=== PATIENT | male | born 1980 | race Caucasian/White ===

== ENCOUNTER 2017-06-04 13:36 | Inpatient (IN) | payer OTHER, BC ==
[~2017-06-04 13:36] MED LIST: PIPERACILLIN/TAZOB 4.5 GM 4.5 GM in DEXTROSE 5%-WATER 100 ML IVPB SCH
--- NOTE | 2017-06-04 13:58 | PDOC ---
History of Present Illness - General Chief Complaint: SIRS, Suspected/Possible Stated Complaint: (PCP SENT) Time Seen by Provider: 06/04/17 13:58 - History of Present Illness Initial Comments: 06/04/17 14:21 36yo M hx b/l inguinal hernia repair presents from Dr. Roth's office for 1 day of fevers, chills and L wrist and R scrotal swelling. 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 Does not recall anything biting him. Today, he saw Dr. Roth who drained a L wrist abscess with purulent drainage, gave him IV benadryl, solumedrol and a gram of rocephin in case this was an allergic reaction. He also endorsed a R testicular bump to Dr. Roth who then sent pt to the ED for further evaluation. Pt reports that he shaves the testicular area and recently shaved a few days ago. Has never had an abscess before. Before yesterday was in his usual state of good health. Denies cp, sob, n/v/d, abd pain, LE edema, dysuria. Has not been sexually active for 8 months, denies penile DC. Denies scrotal pain at rest but the swelling is painful when he pushes on it. Meds: percocet PRN PMD: Dr. Roth Allergies: NKDA Past History - Past Medical History Allergies/Adverse Reactions: Allergies Allergy/AdvReac Type Severity Reaction Status Date / Time No Known Allergies Allergy Verified 06/04/17 13:45 Home Medications: Ambulatory Orders NK [No Known Home Medication] 06/04/17 Anemia: No Asthma: No Cancer: No Cardiac Disorders: No CVA: No COPD: No CHF: No Dementia: No Diabetes: No GI Disorders: No Disorders: No HTN: No Hypercholesterolemia: No Liver Disease: No Seizures: No Thyroid Disease: No - Surgical History Abdominal Surgery: Yes (Repair of Right Inguinal Hernia x2) Appendectomy: No Cardiac Surgery: No Cholecystectomy: No Lung Surgery: No Neurologic Surgery: No Orthopedic Surgery: No - Psycho/Social/Smoking Cessation Hx Anxiety: No Suicidal Ideation: No Smoking Status: No Smoking History: Never smoked Number of Cigarettes Smoked Daily: 0 Hx Alcohol Use: No Drug/Substance Use Hx: No Substance Use Type: None Hx Substance Use Treatment: No Review of Systems - Review of Systems Comments:: 06/04/17 14:36 GENERAL/CONSTITUTIONAL: +fever or chills. No weakness. HEAD, EYES, EARS, NOSE AND THROAT: No change in vision. No ear pain or discharge. No sore throat. CARDIOVASCULAR: No chest pain or shortness of breath. RESPIRATORY: No cough, wheezing, or hemoptysis. GASTROINTESTINAL: No nausea, vomiting, diarrhea or constipation. GENITOURINARY: No dysuria, frequency, or change in urination. +scrotal swelling MUSCULOSKELETAL: No joint or muscle swelling. No neck or back pain. +L wrist pain and swelling SKIN: +abscess L wrist NEUROLOGIC: No headache, vertigo, loss of consciousness, or change in strength/ sensation. ENDOCRINE: No increased thirst. No abnormal weight change. HEMATOLOGIC/LYMPHATIC: No anemia, easy bleeding, or history of blood clots. ALLERGIC/IMMUNOLOGIC: No hives or skin allergy. *Physical Exam - Vital Signs Last Vital Signs Temp Pulse Resp BP Pulse Ox 102.8 F H 104 H 20 139/75 98 06/04/17 13:41 06/04/17 13:41 06/04/17 13:41 06/04/17 13:41 06/04/17 13:41 - Physical Exam Comments: 06/04/17 14:37 GENERAL: Awake, alert, and fully oriented, in no acute distress. Febrile, soaked through his t-shirt HEAD: No signs of trauma EYES: PERRLA, EOMI, sclera anicteric, conjunctiva clear ENT: Auricles normal inspection, hearing grossly normal, nares patent, oropharynx clear without exudates. Moist mucosa NECK: Normal ROM, supple, no lymphadenopathy, JVD, or masses LUNGS: Breath sounds equal, clear to auscultation bilaterally. No wheezes, and no crackles HEART: Regular rate and rhythm, normal S1 and S2, no murmurs, rubs or gallops ABDOMEN: Soft, nontender, normoactive bowel sounds. No guarding, no rebound. No masses : R testicle with swelling, erythema, warmth, induration and fluctuant area of approximately 4x6cm EXTREMITIES: Normal range of motion. No clubbing or cyanosis. No cords. L distal wrist with non draining wound with mild surrounding erythema NEUROLOGICAL: Normal speech, cranial nerves intact, negative pronator drift, 5/ 5 strength in all 4 extremities, normal sensation to light touch in all 4 extremities, normal cerebellar exam, normal gait, normal reflexes and tone SKIN: Warm, Dry, normal turgor, no rashes or lesions noted. ED Treatment Course - LABORATORY CBC & Chemistry Diagram: 06/04/17 14:00 06/04/17 14:00 Medical Decision Making - Critical Care Time Total Critical Care Time (minutes): 35 Critical Care Statement: The care of this patient involved high complexity decision making to prevent further life threatening deterioration of the patient 's condition and/or to evaluate & treat vital organ system(s) failure or risk of failure. - Medical Decision Making 06/04/17 14:39 36yo M w/o significant PMH p/w fever, chills, and likely L wrist and R scrotal abscess. Possible 2/2 shaving. Pt currently meets SIRS criteria with recurrent fever here in the ED. Plan: -labs -herrera cx -lactate -scrotal US -UA -abx -IVF -admit 06/04/17 16:52 US with acute vs chronic orchitis as well as moderate hydrocele WBC [address] Roth re case, will admit WIll also c/s Dr. Oswald (ID) and Dr. Sotelo (uro) Awaiting call back 06/04/17 17:[address] Weir who advised we cover with Vanc/Zosyn as 2 abscesses are concerning for bacteremia stephen in setting of recurrent fevers and chills. Vanc and Zosyn ordered. Case was also discussed with Dr. Sotelo who will see the patient *DC/Admit/Observation/Transfer Diagnosis at time of Disposition: Systemic inflammatory response syndrome (SIRS) - Discharge Dispostion Condition at time of disposition: Fair Admit: Yes - Referrals Referrals: Abdulaziz Roth MD [Primary Care Provider] - - Attestations Physician Attestion: 06/04/17 16:53 I, Dr. Tran Casas MD, attest that this document has been prepared under my direction and personally reviewed by me in its entirety. I further attest, that it accurately reflects all work, treatment, procedures and medical decision -making performed by me.
[2017-06-04] MEDS ORDERED: SODIUM CHLORIDE 0.9% 1000 ML INFUS.BAG IV ONE (13:59)
[2017-06-04] MEDS ORDERED: ACETAMINOPHEN 500 MG TABLET (FP) PO ONE (14:17)
[2017-06-04] MEDS ORDERED: ACETAMINOPHEN 1000 MG/100 ML VIAL (NON FORMULARY) IVPB ONE (14:18)
[2017-06-04] MEDS ORDERED: ACETAMINOPHEN INJECTION 100 ML IVPB ONE (14:31)
[2017-06-04 14:35] LABS: VENOUS BLOOD GAS HCO3 24.5 meq/L (19-25); VENOUS PH 7.46 (7.32-7.42)
[2017-06-04 14:59] LABS: URINE APPEARANCE CLEAR; URINE BILIRUBIN NEGATIVE (NEGATIVE); URINE BLOOD 1+ (NEGATIVE); URINE COLOR STRAW; URINE GLUCOSE (UA) NEGATIVE (NEGATIVE); URINE KETONE NEGATIVE (NEGATIVE); URINE LEUK ESTERASE NEGATIVE (NEGATIVE); URINE NITRITE NEGATIVE (NEGATIVE); URINE PROTEIN NEGATIVE (NEGATIVE); URINE UROBILINOGEN NEGATIVE mg/dL (0.2-1.0)
[2017-06-04 15:12] LABS: ALBUMIN 3.9 g/dl (3.4-5.0); ANION GAP 6 (8-16); CALCIUM 8.6 mg/dL (8.5-10.1); CO2 25 mmol/L (21-32); GLUCOSE,RANDOM 91 mg/dL (74-106)
[2017-06-04 15:14] LABS: BASOPHIL 0.1 % (0-2.0); EOSINOPHIL 0.1 % (0-4.5); MCH 29.7 pg (25.7-33.7); MCHC 34.1 g/dl (32.0-35.9); MEAN CELL VOLUME 87.1 fl (80-96); NEUTROPHILS 91.1 % (42.8-82.8); PLATELET COUNT 229 K/MM3 (134-434); RDW 14.5 % (11.9-15.9); SGPT/ALT 28 U/L (12-78); URINE WBC <1 /hpf (3-5); WHITE BLOOD COUNT 16.9 K/mm3 (4.0-10.0)
[2017-06-04 15:19] LABS: ALK PHOS 82 U/L (45-117); BILIRUBIN,TOTAL 1.1 mg/dL (0.2-1.0); CPK 490 IU/L (39-308); CREATININE 1.1 mg/dL (0.7-1.3); SGOT/AST 33 U/L (15-37); TOT PROT 7.6 g/dl (6.4-8.2); TROPONIN I < 0.02 ng/ml (0.00-0.05)
[2017-06-04 15:36] LABS: INR 1.21 (0.82-1.09); PROTHROMBIN TIME (PATIENT) 13.4 SEC (9.98-11.88)
[2017-06-04 15:39] LABS: ACTIVATED PTT 30.1 SECONDS (26.9-34.4)
[2017-06-04] MEDS ORDERED: VANCOMYCIN 1,750 MG in DEXTROSE 5%-WATER - 250 ML IVPB ONE (17:01)
[2017-06-04] MEDS ORDERED: PIPERACILLIN/TAZOB 4.5 GM 4.5 GM in DEXTROSE 5%-WATER - 100 ML IVPB ONE (17:03)
[2017-06-04] MEDS ORDERED: VANCOMYCIN 1 GRAM (PRE-DOCKED) 250 ML IVPB ONE (17:40)
[2017-06-04] MEDS ORDERED: PIPERACILLIN/TAZOB 4.5 GM 100 ML IVPB ONE (17:40)
--- NOTE | 2017-06-04 17:49 | PN ---
Progress Note (short form) - Note Progress Note: ID consult dictated imp/reccd 36 year old man developed abscess on left forearm yesterday afternoon, last night he started having fever and chills saw his PMD today who drained the abscess and sent him to ED found to have a painful nodular mass in his right testicle as well fever tachycardia-SIRS abscess left forearm orchitis- possible abscess or mass right testicle concern for bacteremia no prior history of abscess no ivdu suggest vanco zosyn adjusted for weight not sexually active for months no dysuria declines HIV testing at this time- prefers as outpt with his PMD Problem List - Problems (1) Systemic inflammatory response syndrome (SIRS) Code(s): R65.10 - SIRS OF NON-INFECTIOUS ORIGIN W/O ACUTE ORGAN DYSFUNCTION (2) Abscess Code(s): L02.91 - CUTANEOUS ABSCESS, UNSPECIFIED (3) Orchitis Code(s): N45.2 - ORCHITIS
[2017-06-04] MEDS ORDERED: diphenhydrAMINE HCL 25 MG CAPSULE (FP) PO PRN (17:58)
[2017-06-04] MEDS ORDERED: ACETAMINOPHEN 325 MG TABLET (FP) PO PRN (17:58)
[2017-06-04] MEDS ORDERED: PIPERACILLIN/TAZOB 4.5 GM/100 ML PRE-DOCKED IVPB SCH (18:00)
[2017-06-04] MEDS ORDERED: ONDANSETRON *ODT* 4 MG TABLET SL PRN (18:00)
[2017-06-04] MEDS ORDERED: VANCOMYCIN 1,750 MG in DEXTROSE 5%-WATER - 500 ML IVPB ONE (18:30)
[2017-06-04] MEDS ORDERED: BACITRACIN 0.9 GM PACKET ONE (19:05)
[2017-06-04] MEDS ORDERED: PANTOPRAZOLE 40 MG TABLET (FP) ONE (19:05)
[2017-06-04] MEDS: BACITRACIN 15 GM TUBE TOPICAL OINTMENT TP SCH (19:06)
[2017-06-04] MEDS: PANTOPRAZOLE 40 MG TABLET (FP) PO SCH (19:06)
[2017-06-04] MEDS ORDERED: ACETAMINOPHEN 325 MG TABLET (FP) ONE (20:23)
[2017-06-04 20:54] LABS: ALBUMIN 3.6 g/dl (3.4-5.0); ANION GAP 2 (8-16); CALCIUM 8.7 mg/dL (8.5-10.1); CO2 26 mmol/L (21-32); CREATININE 1.1 mg/dL (0.7-1.3); GLUCOSE,RANDOM 157 mg/dL (74-106); SGOT/AST 27 U/L (15-37); SGPT/ALT 29 U/L (12-78); TOT PROT 7.4 g/dl (6.4-8.2)
[2017-06-04 20:55] LABS: ALK PHOS 77 U/L (45-117)
[2017-06-04] MEDS: SODIUM CHLORIDE 1,000 ML IV SCH (21:47)
[2017-06-04 22:12] VITALS: BMI 40.6
[2017-06-05] MEDS ORDERED: PIPERACILLIN/TAZOBACTAM 4.5 GM VIAL IVPB ONE ×3 (02:21→17:06)
[2017-06-05] MEDS ORDERED: DEXTROSE 5%-WATER 100 ML IVPB ONE ×3 (02:21→17:06)
[2017-06-05] MEDS: PIPERACILLIN/TAZOB 4.5 GM 4.5 GM in DEXTROSE 5%-WATER 100 ML IVPB SCH ×3 (02:25→17:09)
[2017-06-05] MEDS: VANCOMYCIN 1,500 MG in DEXTROSE 5%-WATER - 500 ML IVPB SCH ×2 (05:57→18:29)
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
[2017-06-05 07:55] LABS: MCH 28.9 pg (25.7-33.7); MCHC 32.8 g/dl (32.0-35.9); MEAN CELL VOLUME 88.1 fl (80-96); MEAN PLT VOLUME 8.6 fl (7.5-11.1); PLATELET COUNT 201 K/MM3 (134-434); RDW 14.8 % (11.9-15.9); WHITE BLOOD COUNT 17.6 K/mm3 (4.0-10.0)
--- NOTE | 2017-06-05 08:24 | CON.GU ---
Consult Consult Specialty:: urology Referred by:: Gonzalez Reason for Consultation:: right epididymo-orchitis - History of Present Illness Chief Complaint: right testicular pain with fever History of Present Illness: Patient is a 36 year old male with acute onset of right testicular pain with fever >102. Patient denies trauma, gross hematuria, flank pain, dysuria, or change in urinary pattern. Patient had an upper extremity abscess drained earlier yesterday. Patient has a family history of prostate cancer. - History Source History Provided By: Patient Limitations to Obtaining History: No Limitations - Alcohol/Substance Use Hx Alcohol Use: No - Smoking History Smoking history: Never smoked Aproximately how many cigarettes per day: 0 Home Medications - Allergies Allergies/Adverse Reactions: Allergies Allergy/AdvReac Type Severity Reaction Status Date / Time No Known Allergies Allergy Verified 06/04/17 13:45 - Home Medications Home Medications: Ambulatory Orders NK [No Known Home Medication] 06/04/17 Physical Exam- Vital Signs: Vital Signs Temperature 97.7 F 06/05/17 06:00 Pulse Rate 77 06/05/17 06:00 Respiratory Rate 20 06/05/17 06:00 Blood Pressure 114/73 06/05/17 06:00 O2 Sat by Pulse Oximetry (%) 98 06/05/17 04:00 Constitutional: Yes: Well Nourished, No Distress, Calm Eyes: Yes: WNL, Conjunctiva Clear, EOM Intact HENT: Yes: WNL, Atraumatic, Normocephalic Neck: Yes: WNL, Supple, Trachea Midline Cardiovascular: Yes: WNL Respiratory: Yes: WNL Gastrointestinal: Yes: WNL, Normal Bowel Sounds, Soft Renal/: Yes: WNL Kidneys: Yes: WNL Pelvis: Yes: WNL Scrotum: Yes: Other (right epididymal induration with significant tenderness; mild testicular tenderness; no fluid collection noted) Penis: Yes: WNL Prostate Exam: Yes: Asymmetrical Musculoskeletal: Yes: WNL Labs: CBC, BMP 06/05/17 06:00 06/04/17 20:20 Imaging - Results Ultrasound: Report Reviewed Assessment/Plan impression right epididymo-orchitis plan continue antibiotics as per ID will follow-up as outpatient
[2017-06-05] MEDS ORDERED: FLU VACCINE QUAD 60 MCG/0.5 ML (MDV 17-18) IM ONE (08:30)
[2017-06-05] MEDS ORDERED: oxyCODONE HCL 5 MG TABLET PO ONE (09:30)
[2017-06-05] MEDS: PANTOPRAZOLE 40 MG TABLET (FP) PO SCH (09:58)
--- NOTE | 2017-06-05 10:33 | HP ---
Admitting History and Physical - Primary Care Physician PCP: Abdulaziz Roth - Admission Chief Complaint: SENT FROM OFFICE WITH ACUTE ANAPHYLAXIS AND FEVER FROM WASP BITE/RIGHT TESTICULAR MASS History of Present Illness: 36yo M hx b/l inguinal hernia repair presents from MY office for 1 day of fevers , chills and L wrist and R scrotal swelling. 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 Does not recall anything biting him. I SAW HIM YESTERDAY AND drained a L wrist abscess with purulent drainage, gave him IV benadryl, solumedrol and a gram of rocephin in case this was an allergic reaction. He also endorsed a R testicular bump to ME who then sent pt to the ED for further evaluation. Pt reports that he shaves the testicular area and recently shaved a few days ago. Has never had an abscess before. Before yesterday was in his usual state of good health. History Source: Patient - Smoking History Smoking history: Never smoked Aproximately how many cigarettes per day: 0 - Alcohol/Substance Use Hx Alcohol Use: No Home Medications - Allergies Allergies/Adverse Reactions: Allergies Allergy/AdvReac Type Severity Reaction Status Date / Time No Known Allergies Allergy Verified 06/04/17 13:45 - Home Medications Home Medications: Ambulatory Orders NK [No Known Home Medication] 06/04/17 Review of Systems - Review of Systems Constitutional: reports: Fever, Lethargy, Weakness Eyes: reports: No Symptoms HENT: reports: No Symptoms Neck: reports: No Symptoms Cardiovascular: reports: No Symptoms Respiratory: reports: No Symptoms Gastrointestinal: reports: No Symptoms Genitourinary: reports: No Symptoms Integumentary: reports: Rash Neurological: reports: No Symptoms Endocrine: reports: No Symptoms Hematology/Lymphatic: reports: No Symptoms Psychiatric: reports: No Symptoms Physical Examination Vital Signs: Vital Signs Temperature 97.7 F 06/05/17 06:00 Pulse Rate 77 06/05/17 06:00 Respiratory Rate 20 06/05/17 06:00 Blood Pressure 114/73 06/05/17 06:00 O2 Sat by Pulse Oximetry (%) 98 06/05/17 04:00 Constitutional: Yes: Moderate Distress Eyes: Yes: WNL HENT: Yes: Pharyngeal Erythema Neck: Yes: WNL Cardiovascular: Yes: WNL Respiratory: Yes: WNL Gastrointestinal: Yes: WNL Renal/: Yes: Scrotal Edema, Other Musculoskeletal: Yes: WNL Extremities: Yes: WNL Edema: No Peripheral Pulses WNL: Yes Integumentary: Yes: Pressure Ulcer, Rash, Skin Tear (LEFT FOREARM) Wound/Incision: Yes: Dressing Dry and Intact Neurological: Yes: WNL ...Motor Strength: WNL Psychiatric: Yes: WNL Labs: CBC, BMP 06/05/17 06:00 06/04/17 20:20 Imaging - Results Ultrasound: Report Reviewed Problem List - Problems (1) Abscess Code(s): L02.91 - CUTANEOUS ABSCESS, UNSPECIFIED (2) Orchitis Code(s): N45.2 - ORCHITIS (3) Systemic inflammatory response syndrome (SIRS) Code(s): R65.10 - SIRS OF NON-INFECTIOUS ORIGIN W/O ACUTE ORGAN DYSFUNCTION (4) Anaphylaxis Code(s): T78.2XXA - ANAPHYLACTIC SHOCK, UNSPECIFIED, INITIAL ENCOUNTER Qualifiers: Encounter type: initial encounter Qualified Code(s): T78.2XXA - Anaphylactic shock, unspecified, initial encounter (5) Fever Code(s): R50.9 - FEVER, UNSPECIFIED Qualifiers: Fever type: due to other condition Qualified Code(s): R50.81 - Fever presenting with conditions classified elsewhere (6) Wasp sting-induced anaphylaxis Code(s): T63.461A - TOXIC EFFECT OF VENOM OF WASPS, ACCIDENTAL, INIT Assessment/Plan WASP BITE WITH ANAPHYLAXIS PHARYNGEAL EDEMA IV STEROIDS/ABX / BENADRYL GIVEN ID CONSULT TESTICULAR MASS/ABSCESS EVAL CHECK CULTURES
--- NOTE | 2017-06-05 11:30 | PN ---
Progress Note (short form) - Note Progress Note: ID Vancomycin and Zosyn Feels well NO complaints Selected Entries 06/05/17 10:52 Temperature 98 F Pulse Rate 91 H Respiratory 19 Rate Blood Pressure 143/70 LUng Clear Cor S1 S2 rr NO MURMUR abd Soft nontender testicular epidydimal swelling Ext Abscess draining left forearm Microbiology Laboratory Tests 06/04/17 06/04/17 06/05/17 14:00 20:20 06:00 WBC 17.6 H Hgb 13.2 Hct 40.2 Plt Count 201 Creatinine 1.1 Total Bilirubin 1.0 Alkaline Phosphatase 77 Urine RBC None Urine WBC <1 Microbiology Assessment Right sided orchitis/ LEft forearm abscess drained PMD Relationship ? 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
[2017-06-05] MEDS: methylPREDNISolone 4 MG TABLET PO SCH (12:06)
--- NOTE | 2017-06-05 13:15 | EKG ---
Test Reason : Blood Pressure : / mmHG Vent. Rate : 093 BPM Atrial Rate : 093 BPM P-R Int : 160 ms QRS Dur : 090 ms QT Int : 326 ms P-R-T Axes : 041 052 017 degrees QTc Int : 405 ms NORMAL SINUS RHYTHM POSSIBLE LEFT ATRIAL ENLARGEMENT BORDERLINE ECG WHEN COMPARED WITH ECG OF 13-FEB-2011 10:02, VENT. RATE HAS INCREASED BY 44 BPM Confirmed by TUNDE ORDOÑEZ MD ([id number]) on 06/05/2017 1:15:24 PM Referred By: Confirmed By:TUNDE ORDOÑEZ MD
--- NOTE | 2017-06-05 13:18 | PN ---
Progress Note (short form) - Note Progress Note: full consult to follow, pt seen and no need for further I&D. warm compresses ordered.
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
[2017-06-05] MEDS: SODIUM CHLORIDE 1,000 ML IV SCH (17:08)
[2017-06-05] MEDS: oxyCODONE HCL 5 MG TABLET PO PRN (17:44)
[2017-06-05] MEDS: BACITRACIN 15 GM TUBE TOPICAL OINTMENT TP SCH (17:47)
[2017-06-06] MEDS ORDERED: DEXTROSE 5%-WATER 100 ML IVPB ONE ×2 (01:03→16:40)
[2017-06-06] MEDS ORDERED: PIPERACILLIN/TAZOBACTAM 4.5 GM VIAL IVPB ONE ×3 (01:03→16:39)
[2017-06-06] MEDS: PIPERACILLIN/TAZOB 4.5 GM 4.5 GM in DEXTROSE 5%-WATER 100 ML IVPB SCH ×3 (01:26→18:26)
[2017-06-06] MEDS: VANCOMYCIN 1,500 MG in DEXTROSE 5%-WATER - 500 ML IVPB SCH ×2 (05:36→19:34)
[2017-06-06] MEDS: oxyCODONE HCL 5 MG TABLET PO PRN ×2 (07:59→16:55)
[2017-06-06] MEDS: PANTOPRAZOLE 40 MG TABLET (FP) PO SCH (09:19)
[2017-06-06 10:33] LABS: MCHC 32.6 g/dl (32.0-35.9); MEAN CELL VOLUME 88.9 fl (80-96); MEAN PLT VOLUME 8.4 fl (7.5-11.1); PLATELET COUNT 220 K/MM3 (134-434); RDW 15.1 % (11.9-15.9); WHITE BLOOD COUNT 12.7 K/mm3 (4.0-10.0)
--- NOTE | 2017-06-06 11:38 | PN ---
Progress Note, Physician Chief Complaint: AWAKE ALERT C/O RIGHT TESTICLE INCREASING IN SIZE - Current Medication List Current Medications: Active Medications Acetaminophen (Tylenol -) 650 mg PO Q6H PRN PRN Reason: FEVER OR PAIN Last Admin: 06/04/17 22:58 Dose: 650 mg Bacitracin (Bacitracin -) 1 applic TP DAILY [facility] Last Admin: 06/05/17 17:47 Dose: Not Given Diphenhydramine HCl (Benadryl -) 25 mg PO Q6H PRN PRN Reason: FOR ITCHING Sodium Chloride (Normal Saline -) 1,000 mls @ 83 mls/hr IV ASDIR [facility] Last Admin: 06/05/17 17:08 Dose: 83 mls/hr Piperacillin Sod/Tazobactam (Sod 4.5 gm/ Dextrose) 100 mls @ 200 mls/hr IVPB Q8H-IV [facility] Last Admin: 06/06/17 09:19 Dose: 200 mls/hr Vancomycin HCl 1,500 mg/ (Dextrose) 500 mls @ 250 mls/hr IVPB Q12H [facility] Last Admin: 06/06/17 05:36 Dose: 250 mls/hr Methylprednisolone (Medrol -) 4 mg PO DAILY [facility] Last Admin: 06/05/17 12:06 Dose: 4 mg Ondansetron HCl (Zofran Odt -) 4 mg SL Q6H PRN PRN Reason: NAUSEA AND/OR VOMITING Last Admin: 06/05/17 02:24 Dose: 4 mg Oxycodone HCl (Roxicodone -) 10 mg PO Q6H PRN PRN Reason: PAIN Last Admin: 06/06/17 07:59 Dose: 10 mg Pantoprazole Sodium (Protonix -) 40 mg PO DAILY [facility] Last Admin: 06/06/17 09:19 Dose: 40 mg - Objective Vital Signs: Vital Signs Temperature 97.8 F 06/06/17 06:00 Pulse Rate 79 06/06/17 06:00 Respiratory Rate 18 06/06/17 06:00 Blood Pressure 132/68 06/06/17 06:00 O2 Sat by Pulse Oximetry (%) 98 06/05/17 19:56 Constitutional: Yes: Mild Distress Eyes: Yes: WNL HENT: Yes: WNL Neck: Yes: WNL Cardiovascular: Yes: WNL Respiratory: Yes: WNL Gastrointestinal: Yes: WNL Genitourinary: Yes: Scrotal Edema, Other (ORCHITIS) Musculoskeletal: Yes: WNL Extremities: Yes: WNL Edema: No Peripheral Pulses WNL: Yes Integumentary: Yes: Rash, Skin Tear Wound/Incision: Yes: Dressing Dry and Intact (LEFT FOREARM) Neurological: Yes: WNL ...Motor Strength: WNL Psychiatric: Yes: WNL Labs: CBC, BMP 06/06/17 10:04 06/04/17 20:20 INR, PTT INR 1.21 (0.82-1.09) H 06/04/17 14:00 Problem List - Problems (1) Abscess Code(s): L02.91 - CUTANEOUS ABSCESS, UNSPECIFIED (2) Orchitis Code(s): N45.2 - ORCHITIS (3) Systemic inflammatory response syndrome (SIRS) Code(s): R65.10 - SIRS OF NON-INFECTIOUS ORIGIN W/O ACUTE ORGAN DYSFUNCTION (4) Anaphylaxis Code(s): T78.2XXA - ANAPHYLACTIC SHOCK, UNSPECIFIED, INITIAL ENCOUNTER Qualifiers: Encounter type: initial encounter Qualified Code(s): T78.2XXA - Anaphylactic shock, unspecified, initial encounter (5) Fever Code(s): R50.9 - FEVER, UNSPECIFIED Qualifiers: Fever type: due to other condition Qualified Code(s): R50.81 - Fever presenting with conditions classified elsewhere (6) Wasp sting-induced anaphylaxis Code(s): T63.461A - TOXIC EFFECT OF VENOM OF WASPS, ACCIDENTAL, INIT Assessment/Plan IV ABX PER ID NO GROWTH ON CULTURES LABS REVIEWED ID F/U APPRECIATED CALL BACK FOR TESTICLE EDEMA/MASS
[2017-06-06] MEDS ORDERED: PT OWN MED DRAWER 7, Y5N ONE ×2 (12:23→16:53)
--- NOTE | 2017-06-06 14:23 | PN ---
Progress Note (short form) - Note Progress Note: continues pain left forearm, some purulent drainage noted still with scrotal pain Vital Signs Period Temp Pulse Resp BP Sys/Forte Pulse Ox Last 24 Hr 97.8 F-99.5 F 77-83 18-20 102-132/51-68 98-98 cor-rrr lungs clear abd soft,nt ext +induration left forearm with purulent drainage +scrotal pain and induration with erythema CBC, BMP 06/06/17 10:04 06/04/17 20:20 Microbiology 06/04/17 14:00 Urine - Urine Clean Catch Urine Culture - Final NO GROWTH OBTAINED 06/04/17 14:00 Blood - Peripheral Venous Blood Culture - Preliminary NO GROWTH OBTAINED AFTER 24 HOURS, INCUBATION TO CONTINUE FOR 4 DAYS. 06/04/17 14:00 Blood - Peripheral Venous Blood Culture - Preliminary NO GROWTH OBTAINED AFTER 24 HOURS, INCUBATION TO CONTINUE FOR 4 DAYS. a/p fever tachycardia-SIRS abscess left forearm orchitis- possible abscess or mass right testicle repeat wound culture, now with purulent drainage from his arm continue vanco/zosyn vancomycin trough ordered not sexually active for months no dysuria will order chlamydia/GC DELTA add po doxycycline declines HIV testing at this time- prefers as outpt with his PMD Problem List - Problems (1) Systemic inflammatory response syndrome (SIRS) Code(s): R65.10 - SIRS OF NON-INFECTIOUS ORIGIN W/O ACUTE ORGAN DYSFUNCTION (2) Abscess Code(s): L02.91 - CUTANEOUS ABSCESS, UNSPECIFIED (3) Orchitis Code(s): N45.2 - ORCHITIS
[2017-06-06] MEDS ORDERED: LIDOCAINE HCL 1%, 10 MG/ML (20ML VIAL) ONE (16:50)
[2017-06-06] MEDS: methylPREDNISolone 4 MG TABLET PO SCH (16:55)
[2017-06-06] MEDS: BACITRACIN 15 GM TUBE TOPICAL OINTMENT TP SCH (17:17)
--- NOTE | 2017-06-06 17:57 | PN ---
Progress Note (short form) - Note Progress Note: Vascular Surgery Left forearm I&D performed. Area opened above prior incision due to pain and erythema. No pus found Entire area explored with scissors -- no loculations found. Bacitracin to area. Jerry Camarena DO
--- NOTE | 2017-06-06 18:16 | CONSULT ---
Consult - text type - Consultation Consultation Note: cc: left epididydo-orchitis hpi: called to evaluate patient for possible abscess formation. patient is afebrile and otherwise doing ok afeb no scrotal collection tender and indurated epididymys and testicle imp epididymo-orchitis plan continue antibiotics as per id
[2017-06-06] MEDS: DOXYCYCLINE HYCLATE 100 MG CAPSULE PO SCH (18:26)
[2017-06-06] MEDS ORDERED: HYDROmorphone HCL CARPU-JECT 1 MG/1 ML DISP.SYRIN IVPB ONE (18:45)
[2017-06-06] MEDS: SODIUM CHLORIDE 1,000 ML IV SCH (20:20)
[2017-06-07] MEDS ORDERED: DEXTROSE 5%-WATER 100 ML IVPB ONE ×4 (01:17→23:56)
[2017-06-07] MEDS ORDERED: PIPERACILLIN/TAZOBACTAM 4.5 GM VIAL IVPB ONE ×4 (01:17→23:56)
[2017-06-07] MEDS: PIPERACILLIN/TAZOB 4.5 GM 4.5 GM in DEXTROSE 5%-WATER 100 ML IVPB SCH ×3 (01:34→17:43)
[2017-06-07] MEDS: HYDROmorphone HCL CARPU-JECT 1 MG/1 ML DISP.SYRIN IVPB PRN ×3 (03:48→18:31)
[2017-06-07] MEDS ORDERED: PT OWN MED DRAWER 7, Y5N ONE ×4 (05:33→18:57)
[2017-06-07] MEDS: VANCOMYCIN 1,500 MG in DEXTROSE 5%-WATER - 500 ML IVPB SCH ×2 (05:51→18:32)
[2017-06-07] MEDS: DOXYCYCLINE HYCLATE 100 MG CAPSULE PO SCH ×2 (09:53→17:42)
[2017-06-07] MEDS: PANTOPRAZOLE 40 MG TABLET (FP) PO SCH (09:53)
[2017-06-07] MEDS: BACITRACIN 15 GM TUBE TOPICAL OINTMENT TP SCH (10:22)
[2017-06-07] MEDS: methylPREDNISolone 4 MG TABLET PO SCH (10:25)
--- NOTE | 2017-06-07 10:32 | PN ---
Progress Note, Physician Chief Complaint: AWAKE ALERT LEFT ARM DRESSING DRAINING - Current Medication List Current Medications: Active Medications Acetaminophen (Tylenol -) 650 mg PO Q6H PRN PRN Reason: FEVER OR PAIN Last Admin: 06/04/17 22:58 Dose: 650 mg Bacitracin (Bacitracin -) 1 applic TP DAILY [facility] Last Admin: 06/07/17 10:22 Dose: 1 applic Diphenhydramine HCl (Benadryl -) 25 mg PO Q6H PRN PRN Reason: FOR ITCHING Doxycycline Hyclate (Vibramycin -) 100 mg PO BID@1000,1800 [facility] Last Admin: 06/07/17 09:53 Dose: 100 mg Hydromorphone HCl (Dilaudid Injection -) 1 mg IVPB Q6H PRN PRN Reason: PAIN Last Admin: 06/07/17 03:48 Dose: 1 mg Piperacillin Sod/Tazobactam (Sod 4.5 gm/ Dextrose) 100 mls @ 200 mls/hr IVPB Q8H-IV [facility] Last Admin: 06/07/17 09:53 Dose: 200 mls/hr Vancomycin HCl 1,500 mg/ (Dextrose) 500 mls @ 250 mls/hr IVPB Q12H [facility] Last Admin: 06/07/17 05:51 Dose: 250 mls/hr Methylprednisolone (Medrol -) 4 mg PO DAILY [facility] Last Admin: 06/07/17 10:25 Dose: 4 mg Ondansetron HCl (Zofran Odt -) 4 mg SL Q6H PRN PRN Reason: NAUSEA AND/OR VOMITING Last Admin: 06/05/17 02:24 Dose: 4 mg Oxycodone HCl (Roxicodone -) 10 mg PO Q6H PRN PRN Reason: PAIN Last Admin: 06/06/17 16:55 Dose: 10 mg Pantoprazole Sodium (Protonix -) 40 mg PO DAILY [facility] Last Admin: 06/07/17 09:53 Dose: 40 mg - Objective Vital Signs: Vital Signs Temperature 98.1 F 06/07/17 06:55 Pulse Rate 70 06/07/17 06:55 Respiratory Rate 18 06/07/17 06:55 Blood Pressure 110/63 06/07/17 06:55 O2 Sat by Pulse Oximetry (%) 98 06/06/17 21:00 Constitutional: Yes: Mild Distress Eyes: Yes: WNL HENT: Yes: WNL Neck: Yes: WNL Cardiovascular: Yes: WNL Respiratory: Yes: WNL Gastrointestinal: Yes: WNL Genitourinary: Yes: Scrotal Edema, Other Musculoskeletal: Yes: WNL Extremities: Yes: Other Edema: Yes Edema: LUE: 1+ Peripheral Pulses WNL: Yes Integumentary: Yes: Other Wound/Incision: Yes: Dressing Dry and Intact, Draining Neurological: Yes: WNL ...Motor Strength: WNL Psychiatric: Yes: WNL Labs: CBC, BMP 06/06/17 10:04 06/04/17 20:20 INR, PTT INR 1.21 (0.82-1.09) H 06/04/17 14:00 Problem List - Problems (1) Abscess Code(s): L02.91 - CUTANEOUS ABSCESS, UNSPECIFIED (2) Orchitis Code(s): N45.2 - ORCHITIS (3) Systemic inflammatory response syndrome (SIRS) Code(s): R65.10 - SIRS OF NON-INFECTIOUS ORIGIN W/O ACUTE ORGAN DYSFUNCTION (4) Anaphylaxis Code(s): T78.2XXA - ANAPHYLACTIC SHOCK, UNSPECIFIED, INITIAL ENCOUNTER Qualifiers: Encounter type: initial encounter Qualified Code(s): T78.2XXA - Anaphylactic shock, unspecified, initial encounter (5) Fever Code(s): R50.9 - FEVER, UNSPECIFIED Qualifiers: Fever type: due to other condition Qualified Code(s): R50.81 - Fever presenting with conditions classified elsewhere (6) Wasp sting-induced anaphylaxis Code(s): T63.461A - TOXIC EFFECT OF VENOM OF WASPS, ACCIDENTAL, INIT Assessment/Plan IV ABX CONTINUED CT LUE R/O HIDDEN ABSCESS NO FEVERS NO CULTURES BACK YET ORHITIS CONTINUES , FOLLOW UP CT PELVIS
--- NOTE | 2017-06-07 14:32 | PN ---
Progress Note (short form) - Note Progress Note: feels much better less arm and scrotal pain notes scrotum is beginning to drain Vital Signs Period Temp Pulse Resp BP Sys/Forte Pulse Ox Last 24 Hr 98.1 F-98.4 F 64-88 18-20 110-132/63-71 98 cor-rrr lungs clear abd soft,nt ext forearm purulent drainage scrotum less tender, +small amount purulent drainage CBC, BMP 06/06/17 10:04 06/04/17 20:20 Microbiology 06/05/17 21:51 Arm - Left Forearm Gram Stain - Final 06/05/17 21:51 Arm - Left Forearm Wound Culture - Preliminary Presumptive Mrsa (Pbp2a Pos) 06/04/17 14:00 Blood - Peripheral Venous Blood Culture - Preliminary NO GROWTH OBTAINED AFTER 48 HOURS, INCUBATION TO CONTINUE FOR 3 DAYS. 06/04/17 14:00 Blood - Peripheral Venous Blood Culture - Preliminary NO GROWTH OBTAINED AFTER 48 HOURS, INCUBATION TO CONTINUE FOR 3 DAYS. 06/04/17 14:00 Urine - Urine Clean Catch Urine Culture - Final NO GROWTH OBTAINED a/p abscess of forearm orchits- ?abscess culture of pus from scrotum sent vanco trough reordered continue vanco/zosyn MRSA isolation (contact) Problem List - Problems (1) Systemic inflammatory response syndrome (SIRS) Code(s): R65.10 - SIRS OF NON-INFECTIOUS ORIGIN W/O ACUTE ORGAN DYSFUNCTION (2) Abscess Code(s): L02.91 - CUTANEOUS ABSCESS, UNSPECIFIED (3) Orchitis Code(s): N45.2 - ORCHITIS
[2017-06-07] MEDS ORDERED: INSULIN (NOVOLOG) ASPART 100 UNITS/ML 10ML VIAL ONE (18:57)
[2017-06-08] MEDS: PIPERACILLIN/TAZOB 4.5 GM 4.5 GM in DEXTROSE 5%-WATER 100 ML IVPB SCH ×3 (01:54→18:15)
[2017-06-08] MEDS: HYDROmorphone HCL CARPU-JECT 1 MG/1 ML DISP.SYRIN IVPB PRN (05:30)
[2017-06-08] MEDS: VANCOMYCIN 1,500 MG in DEXTROSE 5%-WATER - 500 ML IVPB SCH ×2 (06:08→19:32)
[2017-06-08 07:05] LABS: MCH 29.2 pg (25.7-33.7); MCHC 32.8 g/dl (32.0-35.9); MEAN PLT VOLUME 8.2 fl (7.5-11.1); PLATELET COUNT 247 K/MM3 (134-434); RDW 14.8 % (11.9-15.9); WHITE BLOOD COUNT 8.7 K/mm3 (4.0-10.0)
[2017-06-08 07:34] LABS: ALBUMIN 3.1 g/dl (3.4-5.0); ANION GAP 4 (8-16); CALCIUM 8.8 mg/dL (8.5-10.1); CO2 32 mmol/L (21-32); CREATININE 1.1 mg/dL (0.7-1.3); GLUCOSE,RANDOM 96 mg/dL (74-106); SGOT/AST 12 U/L (15-37); SGPT/ALT 24 U/L (12-78)
[2017-06-08 07:36] LABS: ALK PHOS 62 U/L (45-117); BILIRUBIN,TOTAL 0.5 mg/dL (0.2-1.0); TOT PROT 6.7 g/dl (6.4-8.2)
[2017-06-08] MEDS ORDERED: DEXTROSE 5%-WATER 100 ML IVPB ONE ×2 (09:39→18:01)
[2017-06-08] MEDS ORDERED: PT OWN MED DRAWER 7, Y5N ONE ×2 (09:39→18:01)
[2017-06-08] MEDS ORDERED: PIPERACILLIN/TAZOBACTAM 4.5 GM VIAL IVPB ONE ×2 (09:39→18:01)
[2017-06-08] MEDS: DOXYCYCLINE HYCLATE 100 MG CAPSULE PO SCH ×2 (10:04→18:16)
[2017-06-08] MEDS: PANTOPRAZOLE 40 MG TABLET (FP) PO SCH (10:04)
[2017-06-08] MEDS: methylPREDNISolone 4 MG TABLET PO SCH (10:05)
--- NOTE | 2017-06-08 12:21 | PN ---
Progress Note (short form) - Note Progress Note: VAscular Surgery Pt seen and examined. Doing well feels better. on IV antbiotics for MRSA. WArm compresses to forearm daily Jerry Camarena DO
--- NOTE | 2017-06-08 13:42 | PN ---
Progress Note, Physician Chief Complaint: AWAKE ALERT +SCROTUM DISCHARGE NO FEVERS - Current Medication List Current Medications: Active Medications Acetaminophen (Tylenol -) 650 mg PO Q6H PRN PRN Reason: FEVER OR PAIN Last Admin: 06/04/17 22:58 Dose: 650 mg Bacitracin (Bacitracin -) 1 applic TP DAILY [facility] Last Admin: 06/07/17 10:22 Dose: 1 applic Diphenhydramine HCl (Benadryl -) 25 mg PO Q6H PRN PRN Reason: FOR ITCHING Doxycycline Hyclate (Vibramycin -) 100 mg PO BID@1000,1800 [facility] Last Admin: 06/08/17 10:04 Dose: 100 mg Piperacillin Sod/Tazobactam (Sod 4.5 gm/ Dextrose) 100 mls @ 200 mls/hr IVPB Q8H-IV [facility] Last Admin: 06/08/17 10:05 Dose: 200 mls/hr Vancomycin HCl 1,500 mg/ (Dextrose) 500 mls @ 250 mls/hr IVPB Q12H [facility] Last Admin: 06/08/17 06:08 Dose: 250 mls/hr Methylprednisolone (Medrol -) 4 mg PO DAILY [facility] Last Admin: 06/08/17 10:05 Dose: 4 mg Ondansetron HCl (Zofran Odt -) 4 mg SL Q6H PRN PRN Reason: NAUSEA AND/OR VOMITING Last Admin: 06/05/17 02:24 Dose: 4 mg Oxycodone HCl (Roxicodone -) 10 mg PO Q6H PRN PRN Reason: PAIN Pantoprazole Sodium (Protonix -) 40 mg PO DAILY [facility] Last Admin: 06/08/17 10:04 Dose: 40 mg - Objective Vital Signs: Vital Signs Temperature 98.4 F 06/08/17 09:48 Pulse Rate 63 06/08/17 09:48 Respiratory Rate 20 06/08/17 09:48 Blood Pressure 105/61 06/08/17 09:48 O2 Sat by Pulse Oximetry (%) 98 06/08/17 11:00 Constitutional: Yes: Mild Distress Eyes: Yes: WNL HENT: Yes: WNL Neck: Yes: WNL Cardiovascular: Yes: WNL Respiratory: Yes: WNL Gastrointestinal: Yes: WNL Genitourinary: Yes: Scrotal Edema Musculoskeletal: Yes: WNL Extremities: Yes: Erythema Edema: Yes Peripheral Pulses WNL: Yes Wound/Incision: Yes: Dressing Dry and Intact Neurological: Yes: WNL ...Motor Strength: WNL Psychiatric: Yes: WNL Labs: CBC, BMP 06/08/17 06:45 06/08/17 06:45 INR, PTT INR 1.21 (0.82-1.09) H 06/04/17 14:00 Problem List - Problems (1) Abscess Code(s): L02.91 - CUTANEOUS ABSCESS, UNSPECIFIED (2) Orchitis Code(s): N45.2 - ORCHITIS (3) Systemic inflammatory response syndrome (SIRS) Code(s): R65.10 - SIRS OF NON-INFECTIOUS ORIGIN W/O ACUTE ORGAN DYSFUNCTION (4) Anaphylaxis Code(s): T78.2XXA - ANAPHYLACTIC SHOCK, UNSPECIFIED, INITIAL ENCOUNTER Qualifiers: Encounter type: initial encounter Qualified Code(s): T78.2XXA - Anaphylactic shock, unspecified, initial encounter (5) Fever Code(s): R50.9 - FEVER, UNSPECIFIED Qualifiers: Fever type: due to other condition Qualified Code(s): R50.81 - Fever presenting with conditions classified elsewhere (6) Wasp sting-induced anaphylaxis Code(s): T63.461A - TOXIC EFFECT OF VENOM OF WASPS, ACCIDENTAL, INIT Assessment/Plan MRSA + BLOOD ID AWARE WILL CHANGE TO PO ABX ONCE UROLOGY RETRUNS TO SEE PATIENT TOMORROW PAIN CONTROL
[2017-06-08] MEDS: oxyCODONE HCL 5 MG TABLET PO PRN (13:58)
--- NOTE | 2017-06-08 14:00 | PN ---
Progress Note (short form) - Note Progress Note: feels much better less arm and scrotal pain notes scrotum is beginning to drain Vital Signs Period Temp Pulse Resp BP Sys/Forte Pulse Ox Last 24 Hr 97.7 F-98.6 F 60-85 20-20 105-132/57-69 98-98 cor-rrr llungs clear abd soft,nt ext less induration of the forearm, no purulence still with purulent scrotal drainage, less erythema, less tenderness CBC, BMP 06/08/17 06:45 06/08/17 06:45 Laboratory Tests 06/07/17 16:00 Vancomycin Pre-Dose 15.648 H* D Microbiology 06/05/17 21:51 Arm - Left Forearm Gram Stain - Final 06/05/17 21:51 Arm - Left Forearm Wound Culture - Final Mr S Aureus 06/06/17 16:45 Arm - Left Forearm Gram Stain - Final 06/06/17 16:45 Arm - Left Forearm Wound Culture - Preliminary Presumptive Mrsa (Pbp2a Pos) 06/04/17 14:00 Blood - Peripheral Venous Blood Culture - Preliminary NO GROWTH OBTAINED AFTER 72 HOURS, INCUBATION TO CONTINUE FOR 2 DAYS. 06/04/17 14:00 Blood - Peripheral Venous Blood Culture - Preliminary NO GROWTH OBTAINED AFTER 72 HOURS, INCUBATION TO CONTINUE FOR 2 DAYS. 06/04/17 14:00 Urine - Urine Clean Catch Urine Culture - Final NO GROWTH OBTAINED a/p abscess of forearm-mrsa orchits- ?abscess- culture pending continue vanco/zosyn MRSA isolation (contact) d/w dr bernardo Problem List - Problems (1) Systemic inflammatory response syndrome (SIRS) Code(s): R65.10 - SIRS OF NON-INFECTIOUS ORIGIN W/O ACUTE ORGAN DYSFUNCTION (2) Abscess Code(s): L02.91 - CUTANEOUS ABSCESS, UNSPECIFIED (3) Orchitis Code(s): N45.2 - ORCHITIS
[2017-06-08] MEDS: BACITRACIN 15 GM TUBE TOPICAL OINTMENT TP SCH (14:09)
[2017-06-09] MEDS ORDERED: PIPERACILLIN/TAZOBACTAM 4.5 GM VIAL IVPB ONE ×2 (01:40→10:40)
[2017-06-09] MEDS ORDERED: DEXTROSE 5%-WATER 100 ML IVPB ONE ×2 (01:41→10:40)
[2017-06-09] MEDS: PIPERACILLIN/TAZOB 4.5 GM 4.5 GM in DEXTROSE 5%-WATER 100 ML IVPB SCH ×2 (01:52→10:45)
[2017-06-09] MEDS: VANCOMYCIN 1,500 MG in DEXTROSE 5%-WATER - 500 ML IVPB SCH (06:14)
[2017-06-09] MEDS: oxyCODONE HCL 5 MG TABLET PO PRN (06:29)
--- NOTE | 2017-06-09 07:33 | CON.GU ---
Consult Consult Specialty:: urology Reason for Consultation:: right epididymo-orchitis - History of Present Illness Chief Complaint: epididymo-orchitis History of Present Illness: Patient with MRSA wound culture on iv antibiotics as per id. Patient is afebrile and comfortable. No voiding symptoms - History Source History Provided By: Patient Limitations to Obtaining History: No Limitations - Alcohol/Substance Use Hx Alcohol Use: No - Smoking History Smoking history: Never smoked Aproximately how many cigarettes per day: 0 Home Medications - Allergies Allergies/Adverse Reactions: Allergies Allergy/AdvReac Type Severity Reaction Status Date / Time No Known Allergies Allergy Verified 06/04/17 13:45 - Home Medications Home Medications: Ambulatory Orders NK [No Known Home Medication] 06/04/17 Physical Exam- Vital Signs: Vital Signs Temperature 97.7 F 06/09/17 06:00 Pulse Rate 63 06/09/17 06:00 Respiratory Rate 18 06/09/17 06:00 Blood Pressure 108/60 06/09/17 06:00 O2 Sat by Pulse Oximetry (%) 98 06/08/17 22:00 Constitutional: Yes: Well Nourished, No Distress, Calm Eyes: Yes: WNL, Conjunctiva Clear, EOM Intact HENT: Yes: WNL, Atraumatic, Normocephalic Neck: Yes: WNL, Supple, Trachea Midline Cardiovascular: Yes: WNL, Regular Rate and Rhythm Respiratory: Yes: WNL, Regular Gastrointestinal: Yes: WNL, Normal Bowel Sounds, Soft Renal/: Yes: WNL Kidneys: Yes: WNL Pelvis: Yes: WNL, Bladder Non Palpable Testicles: Yes: Other (indurated and tender right testicle and epididymis/no areas of fluctuance or collection) Scrotum: Yes: Other (superficial draing right scrotal abscess without collection ) Penis: Yes: WNL Prostate Exam: Yes: Deferred Labs: CBC, BMP 06/08/17 06:45 06/08/17 06:45 Assessment/Plan impression right epididymo-orchitis scrotal abscess (superficial) plan no evidence of collection so an incision and drainage is not needed continue antibiotics and supportive care
[2017-06-09] MEDS ORDERED: PT OWN MED DRAWER 7, Y5N ONE (10:41)
[2017-06-09] MEDS: PANTOPRAZOLE 40 MG TABLET (FP) PO SCH (10:46)
[2017-06-09] MEDS: methylPREDNISolone 4 MG TABLET PO SCH (10:47)
[2017-06-09] MEDS: DOXYCYCLINE HYCLATE 100 MG CAPSULE PO SCH (10:47)
[2017-06-09] MEDS: BACITRACIN 15 GM TUBE TOPICAL OINTMENT TP SCH (10:49)
[2017-06-09 13:32] VITALS: BP 128/71; PULSE 67; TEMP 98.7
--- NOTE | 2017-06-09 13:57 | PN ---
Progress Note (short form) - Note Progress Note: feels much better less arm and scrotal pain notes scrotum is draining- seen by urology this am no intervention planned now he recalls nicking himself shaving on his scrotum Vital Signs Period Temp Pulse Resp BP Sys/Forte Pulse Ox Last 24 Hr 97.7 F-98.7 F 63-80 17-20 108-136/60-83 98 cor-rrr lungs clear abd soft,nt ext less drainage from the fore arm scrotum less swollen, still with purulent drainage CBC, BMP 06/08/17 06:45 06/08/17 06:45 Microbiology 06/07/17 14:44 Scrotum Wound Culture - Preliminary Presumptive Mrsa (Pbp2a Pos) 06/06/17 16:45 Arm - Left Forearm Gram Stain - Final 06/06/17 16:45 Arm - Left Forearm Wound Culture - Preliminary S Aureus 06/04/17 14:00 Blood - Peripheral Venous Blood Culture - Preliminary NO GROWTH OBTAINED AFTER 96 HOURS, INCUBATION TO CONTINUE FOR 1 DAYS. 06/04/17 14:00 Blood - Peripheral Venous Blood Culture - Preliminary NO GROWTH OBTAINED AFTER 96 HOURS, INCUBATION TO CONTINUE FOR 1 DAYS. 06/05/17 21:51 Arm - Left Forearm Gram Stain - Final 06/05/17 21:51 Arm - Left Forearm Wound Culture - Final S Aureus 06/04/17 14:00 Urine - Urine Clean Catch Urine Culture - Final NO GROWTH OBTAINED a/p abscess of forearm-mrsa mrsa superficial scrotal abscess can change to po clindamycin 300 tid for 7 to 10 days add bacid 1 po bid for one month can f/u in our office if he has recurrent skin abscesses- he has our marshall Problem List - Problems (1) Systemic inflammatory response syndrome (SIRS) Code(s): R65.10 - SIRS OF NON-INFECTIOUS ORIGIN W/O ACUTE ORGAN DYSFUNCTION (2) Abscess Code(s): L02.91 - CUTANEOUS ABSCESS, UNSPECIFIED (3) Orchitis Code(s): N45.2 - ORCHITIS
--- NOTE | 2017-06-09 17:03 | DS ---
Physical Examination Vital Signs: Vital Signs Temperature 98.7 F 06/09/17 13:28 Pulse Rate 67 06/09/17 13:28 Respiratory Rate 18 06/09/17 13:28 Blood Pressure 128/71 06/09/17 13:28 O2 Sat by Pulse Oximetry (%) 100 06/09/17 10:00 Constitutional: Yes: No Distress Eyes: Yes: WNL HENT: Yes: WNL Neck: Yes: WNL Cardiovascular: Yes: WNL Respiratory: Yes: WNL Gastrointestinal: Yes: WNL ...Rectal Exam: Yes: WNL Renal/: Yes: Scrotal Edema Musculoskeletal: Yes: WNL Extremities: Yes: Erythema Edema: No Peripheral Pulses WNL: Yes Integumentary: Yes: Rash Wound/Incision: Yes: Dressing Dry and Intact Neurological: Yes: WNL ...Motor Strength: WNL Psychiatric: Yes: WNL Labs: CBC, BMP 06/08/17 06:45 06/08/17 06:45 Discharge Summary Reason For Visit: SYSTEMIC INFLAMMATORY RESPONSE SYNDROME (SIRS) Current Active Problems Abscess (Acute) Anaphylaxis (Acute) Fever (Acute) Orchitis (Acute) Systemic inflammatory response syndrome (SIRS) (Acute) Wasp sting-induced anaphylaxis (Acute) Procedures: Principal: CT LEFT ARM/PELVIS Other Procedures: SONO Hospital Course: ADMITTED IV ABX FOR LEFT ARM CELLULITIS WITH I AND D AND SCROTAL EDEMA ORCHITIS/ ABSCESS, +MRSA TREAT WITH CLINDA 7 DAYS RETURN TO OFFICE IN 1 WEEK Condition: Improved - Instructions Diet, Activity, Other Instructions: LOW FAT SEE DR ROTH 1 WEEK BACITRACIN TO AREA BID Referrals: Abdulaziz Roth MD [Primary Care Provider] - Disposition: HOME - Home Medications Comprehensive Discharge Medication List: Ambulatory Orders NK [No Known Home Medication] 06/04/17
[2017-06-09] MEDS ORDERED: CLINDAMYCIN HCL 150 MG CAPSULE (FP) PO SCH (22:00)
[2017-06-09] MEDS ORDERED: LACTOBACILLUS ACIDOPHILUS 1 EACH TAB (FP) PO SCH (22:00)
== END 2017-06-09 18:23 | disposition home or self-care (01) | DRG 603 ==
LOC: JER 13:36 → JERBED 16:53 → J5S 20:37
PROVIDERS: ADMIT Family Medicine; ATTEND Family Medicine
DX: L02.414 Cutaneous abscess of left upper limb (principal); R65.10 Systemic inflammatory response syndrome (SIRS) of non-infectious origin without acute organ dysfunction; T78.2XXA Anaphylactic shock, unspecified, initial encounter; Z68.41 Body mass index [BMI] 40.0-44.9, adult; L03.114 Cellulitis of left upper limb; N45.2 Orchitis; T63.464A Toxic effect of venom of wasps, undetermined, initial encounter; R50.9 Fever, unspecified; R00.0 Tachycardia, unspecified; B95.62 Methicillin resistant Staphylococcus aureus infection as the cause of diseases classified elsewhere; K40.20 Bilateral inguinal hernia, without obstruction or gangrene, not specified as recurrent
CPT/HCPCS: 36415; 71010-TC; 72193-TC; 73200-TC-RT; 76870-TC; 80053; 81003; 81015; 82378; 82553; 82803; 83605; 84484; 85025; 85027; 85610; 85651; 85730; 86140; 86301; 86850; 86900; 86901; 87040; 87070; 87086; 87186; 87205; 87491; 87591; 90688; 93005; 93010; 99282-25; G0008; G0480

== ENCOUNTER 2019-05-28 15:53 | Emergency (ER) | payer BC, OTHER ==
[2019-05-28 16:12] VITALS: BP 136/86; PULSE 92; TEMP 100; BMI 36.6
[2019-05-28] MEDS ORDERED: KETOROLAC TROMETHAMINE 30 MG/1 ML VIAL IM ONE (16:34)
--- NOTE | 2019-05-28 16:41 | PDOC ---
Documentation entered by Aki Lopez SCRIBE, acting as scribe for Karolina Rose MD. Karolina Rose MD: This documentation has been prepared by the John saxena Daniel, SCRIBE, under my direction and personally reviewed by me in its entirety. I confirm that the documentation accurately reflects all work, treatment, procedures, and medical decision making performed by me. History of Present Illness - General Chief Complaint: Injury Stated Complaint: LEFT KNEE PAIN History Source: Patient Exam Limitations: No Limitations - History of Present Illness Initial Comments: 05/28/19 16:42 The patient is a 38 year old male with no past medical history here today for evaluation of left knee pain. The patient reports that he was picking up a jackhammer yesterday at work and felt a pop in his left knee while twisting. He notes pain since then and rates it as an 8/10. He also notes tingling and tingling on the lateral aspect of his left knee, low back pain, fever and chills , and left ankle pain. Patient notes taking 2 800 mg motrin and 1 percocet yesterday and 3 aspirin today. Patient denies headache, lightheadedness. Denies chest pain, shortness of breath. Denies nausea, vomiting, diarrhea, abdominal pain. Denies urinary symptoms. Denies any new weakness. Denies any recent tattoos. Allergies: NKA Social history: Denies tobacco, alcohol, or illicit drug use Surgical history: Knee arthroscopy (thinks it is the left but is unsure) PCP: Abdulaziz Roth Past History - Past Medical History Allergies/Adverse Reactions: Allergies Allergy/AdvReac Type Severity Reaction Status Date / Time No Known Allergies Allergy Verified 05/28/19 16:02 Home Medications: Ambulatory Orders NK [No Known Home Medication] 03/09/18 Anemia: No Asthma: No Cancer: No Cardiac Disorders: No CVA: No COPD: No CHF: No Dementia: No Diabetes: No GI Disorders: No Disorders: No HTN: No Hypercholesterolemia: No Liver Disease: No Seizures: No Thyroid Disease: No - Surgical History Abdominal Surgery: Yes (Repair of Right Inguinal Hernia x2) Appendectomy: No Cardiac Surgery: No Cholecystectomy: No Lung Surgery: No Neurologic Surgery: No Orthopedic Surgery: No - Suicide/Smoking/Psychosocial Hx Smoking Status: No Smoking History: Never smoked Number of Cigarettes Smoked Daily: 0 Hx Alcohol Use: No Drug/Substance Use Hx: No Substance Use Type: None Hx Substance Use Treatment: No Review of Systems - Review of Systems Able to Perform ROS?: Yes Comments:: 05/28/19 16:42 GENERAL/CONSTITUTIONAL: +Fever and chills. No weakness. HEAD, EYES, EARS, NOSE AND THROAT: No change in vision. No ear pain or discharge. No sore throat. CARDIOVASCULAR: No chest pain or shortness of breath. RESPIRATORY: No cough, wheezing, or hemoptysis. GASTROINTESTINAL: No nausea, vomiting, diarrhea or constipation. GENITOURINARY: No dysuria, frequency, or change in urination. MUSCULOSKELETAL: +left knee pain. +left ankle pain. +low back pain. No neck pain. SKIN: No rash NEUROLOGIC: +tingling lateral aspect of left knee. No headache, vertigo, loss of consciousness, or change in strength. ENDOCRINE: No increased thirst. No abnormal weight change. HEMATOLOGIC/LYMPHATIC: No anemia, easy bleeding, or history of blood clots. ALLERGIC/IMMUNOLOGIC: No hives or skin allergy. *Physical Exam - Vital Signs Last Vital Signs Temp Pulse Resp BP Pulse Ox 100.0 F H 92 H 18 136/86 100 05/28/19 15:54 05/28/19 15:54 05/28/19 15:54 05/28/19 15:54 05/28/19 15:54 - Physical Exam Comments: 05/28/19 16:42 GENERAL: Awake, alert, and fully oriented, in no acute distress HEAD: No signs of trauma EYES: PERRLA, EOMI, sclera anicteric, conjunctiva clear ENT: Auricles normal inspection, hearing grossly normal, nares patent. Moist mucosa NECK: Normal ROM, supple, no lymphadenopathy, JVD, or masses LUNGS: Breath sounds equal, clear to auscultation bilaterally. No wheezes, and no crackles HEART: Regular rate and rhythm, normal S1 and S2, no murmurs, rubs or gallops ABDOMEN: Soft, nontender, normoactive bowel sounds. No guarding, no rebound. No masses EXTREMITIES: +left knee mild infrapatella tenderness with no erythema or effusion. +paraspinal muscle spasms. +left lumboscral tenderness. Negative anterior and posterior drawer test of left knee. No laxity. Left ankle has full range of motion and is nontender. Normal range of motion, no edema. 5/5 lower extremity strength. No erythema. DP/PT pulses 2+ and symmetric. Warm and well perfused. NEUROLOGICAL: +sensation intact of lower extremities except mild decrease in sensation to touch over lateral aspect of left knee. Moves all extremities. Normal speech, normal gait SKIN: Warm, Dry, normal turgor, no rashes or lesions noted. ED Treatment Course - RADIOLOGY Radiology Studies Ordered: Category Date Time Status KNEE 2 POS-LEFT [RAD] Stat Radiology 05/28/19 16:20 Ordered Medical Decision Making - Medical Decision Making 05/28/19 16:34 38 yo male with c/o left knee injury and back strain yesterday while lifting jackhammar into truck. today c/o pain left knee, and lower back pain. states he has had low grade chills, has had this prior when he got his meniscal tear years ago. cant remember which leg his surgery was on. saw dr hobbs orthopedist. no n/v no cough no urinary complaints. no knee swelling. no bowel or bladder incontinence, no new numbness or tingling. on exam pt wtih left knee ttp infrapatellar. neg anterior / posterior drawer. no effusion. from. ankle from no effusion. hip nt from. no midline spinal tenderness. paraspinal spasm and tenderness lumbosacral area. 5/5 lower extremity strength. sensation intact throughout lower ext to light touch. plan xray knee. toradol. knee immobilizer, fu with orthopedist. 05/28/19 17:09 xray knee negative. will dc home with fu for orthopedics dr nava. *DC/Admit/Observation/Transfer Diagnosis at time of Disposition: Left knee injury, Low back strain - Discharge Dispostion Disposition: HOME Condition at time of disposition: Improved Decision to Admit order: No - Referrals Referrals: Abdulaziz Roth MD [Primary Care Provider] - Henrique Nava MD [Staff Physician] - - Patient Instructions Printed Discharge Instructions: Back Pain (Alternative Therapy), Knee Sprain Additional Instructions: you should follow up with an orthopedist. see referral information for dr Nava. wear knee immobilizer for comfort you can take ibuprofen 600 mg every 8 hrs as needed for pain. return for any problems or concerns. if you develop high fever, weakness or any concerns return to emergency room for evaluation immediately. - Post Discharge Activity
[2019-05-28] MEDS ORDERED: KETOROLAC TROMETHAMINE 30 MG/1 ML VIAL ONE (16:44)
== END 2019-05-28 17:35 | disposition home or self-care (01) ==
LOC: FER 15:53
DX: S89.92XA Unspecified injury of left lower leg, initial encounter (principal); X58.XXXA Exposure to other specified factors, initial encounter; Y93.89 Activity, other specified; Y92.89 Other specified places as the place of occurrence of the external cause; Y99.0 Civilian activity done for income or pay; S39.012A Strain of muscle, fascia and tendon of lower back, initial encounter
CPT/HCPCS: 73560-TC-LT-FY; 99282-25

== ENCOUNTER 2019-09-26 21:36 | Emergency (ER) | payer BC ==
[2019-09-26 21:50] VITALS: BP 143/92; PULSE 74; TEMP 98.4; BMI 36.6
[2019-09-26] MEDS ORDERED: CLINDAMYCIN HCL 150 MG CAPSULE (FP) PO ONE (21:50)
[2019-09-26] MEDS ORDERED: CLINDAMYCIN HCL 150 MG CAPSULE (FP) ONE (21:56)
--- NOTE | 2019-09-26 22:37 | PDOC ---
Documentation entered by Shanta Robertson SCRIBE, acting as scribe for Garo Cazares MD. Garo Cazares MD: This documentation has been prepared by the scribe, Shanta Robertson SCRIBE, under my direction and personally reviewed by me in its entirety. I confirm that the documentation accurately reflects all work, treatment, procedures, and medical decision making performed by me. History of Present Illness - General Chief Complaint: Pain, Acute Stated Complaint: SWELLING TO RIGHT ARM History Source: Patient Exam Limitations: No Limitations - History of Present Illness Initial Comments: 09/26/19 21:58 The patient is a 39-year-old male with no reported past medical history who presents to the emergency department with R. arm swelling and redness. The patient presents with 2 days of redness and swelling to the right arm, associated with pain that is aggravated during the night time. The patient reports the swelling has worsened, however the family member at bedside reports the redness had improved compared to yesterday. The patient had been taking antibiotics, the patient took a dose of clindamycin 2 days ago, and following then hes been taking amoxicillin, last abx dose was this morning. The patient reports a similar incident about 2 years ago to the left arm, following a spider bite, for which he was hospitalized for IV antibiotic use. Past History - Past Medical History Allergies/Adverse Reactions: Allergies Allergy/AdvReac Type Severity Reaction Status Date / Time No Known Allergies Allergy Verified 05/28/19 16:02 Home Medications: Ambulatory Orders Clindamycin [Cleocin -] 300 mg PO QID #28 capsule 09/26/19 Anemia: No Asthma: No Cancer: No Cardiac Disorders: No CVA: No COPD: No CHF: No Dementia: No Diabetes: No GI Disorders: No Disorders: No HTN: No Hypercholesterolemia: No Liver Disease: No Seizures: No Thyroid Disease: No - Surgical History Abdominal Surgery: Yes (Repair of Right Inguinal Hernia x2) Appendectomy: No Cardiac Surgery: No Cholecystectomy: No Lung Surgery: No Neurologic Surgery: No Orthopedic Surgery: No - Psycho Social/Smoking Cessation Hx Smoking Status: No Smoking History: Never smoked Have you smoked in the past 12 months: No Number of Cigarettes Smoked Daily: 0 Information on smoking cessation initiated: No Hx Alcohol Use: No Drug/Substance Use Hx: No Substance Use Type: None Hx Substance Use Treatment: No Review of Systems - Review of Systems Able to Perform ROS?: Yes Comments:: 09/26/19 21:59 Constitutional - Pt denies Fever, Chills, weakness, HEENT: denies vision changes, sore throat Respiratory: Denies cough, sob, hemoptysis Cardiac: denies chest pain, palpitations, light headedness, leg swelling Abd/GI: denies abd pain, nausea, vomiting, blood per rectum, melena, diarrhea : denies dysuria, frequency, discharge Musculskelatal - denies back pain, joint swelling skin - +redness and swelling to the right arm. denies bruising, erythema, rash elsewhere. neurological: denies headache, numbness, focal weakness, tingling, ataxia, weakness hematologic: denies anemia, easy bruising, easy bleeding. *Physical Exam - Vital Signs Last Vital Signs Temp Pulse Resp BP Pulse Ox 98.4 F 74 15 143/92 100 09/26/19 21:39 09/26/19 21:39 09/26/19 21:39 09/26/19 21:39 09/26/19 21:39 - Physical Exam 09/26/19 22:11 CONSTITUTIONAL: Well-appearing; well-nourished; in no apparent distress EYES: PERRL; EOM intact ENMT: External appears normal NECK: Supple; non-tender EXT: +erythematous area with minimal tenderness of the dorsal surface of the right elbow, erythema extending over 7cm, normal range of motion. SKIN: Warm, dry, no rash. Medical Decision Making - Medical Decision Making 09/26/19 22:37 bursitis vs cellulitis since he has already started an abx course with improvement I think it makes most sense to continue abx course Discharge - Discharge Information Problems reviewed: Yes Clinical Impression/Diagnosis: Bursitis Qualifiers: Bursitis location: elbow Elbow bursitis location: unspecified Laterality: right Qualified Code(s): M70.31 - Other bursitis of elbow, right elbow Condition: Stable Disposition: HOME - Additional Discharge Information Prescriptions: Clindamycin [Cleocin -] 300 mg PO QID #28 capsule - Follow up/Referral Referrals: Abdulaziz Roth MD [Primary Care Provider] - - Patient Discharge Instructions Patient Printed Discharge Instructions: DI for Elbow Bursitis - Post Discharge Activity
== END 2019-09-26 22:05 | disposition home or self-care (01) ==
LOC: FER 21:36
DX: M70.31 Other bursitis of elbow, right elbow (principal)
CPT/HCPCS: 99281-25

== ENCOUNTER 2021-07-19 20:20 | Inpatient (IN) | payer BC ==
[2021-07-19 20:36] VITALS: BMI 38.5
[2021-07-19] MEDS ORDERED: GLUCAGON 1 MG KIT IVPUSH ONE (21:20)
[2021-07-19] MEDS ORDERED: ONDANSETRON 4 MG/2 ML VIAL IVPUSH ONE (21:21)
[2021-07-19] MEDS ORDERED: GLUCAGON 1 MG KIT ONE (21:32)
[2021-07-19] MEDS ORDERED: ONDANSETRON 4 MG/2 ML VIAL ONE (21:33)
[2021-07-19 22:21] LABS: BASO % 0.6 % (0-2.0); HEMOGLOBIN 14.6 GM/dL (11.7-16.9); LYMPH % 23.7 % (8-40); MCH 30.7 pg (25.7-33.7); MEAN CELL VOLUME 90.2 fl (80-96); MEAN PLT VOLUME 8.4 fl (7.5-11.1); MONO % 6.6 % (3.8-10.2); NEUT % 68.1 % (42.8-82.8); PLATELET COUNT 203 10^3/uL (134-434); RBC 4.76 M/mm3 (4.00-5.60); RDW 14.7 % (11.9-15.9); WHITE BLOOD COUNT 8.6 K/mm3 (4.0-10.0)
[2021-07-19 22:37] LABS: INR 1.04 (0.83-1.09); PROTHROMBIN TIME (PATIENT) 12.2 SEC (9.7-13.0)
[2021-07-19 22:49] LABS: CALCIUM 9.1 mg/dL (8.5-10.1)
[2021-07-19 22:50] LABS: ALBUMIN 4.1 g/dl (3.4-5.0); BLOOD UREA NITROGEN 17.8 mg/dL (7-18)
[2021-07-19 22:53] LABS: CREATININE 1.1 mg/dL (0.55-1.3)
[2021-07-19 22:55] LABS: BILIRUBIN,TOTAL 0.7 mg/dL (0.2-1); TOT PROT 7.9 g/dl (6.4-8.2)
[2021-07-20] MEDS ORDERED: morphine CARPU-JECT 4 MG/1 ML DISP.SYRIN IVPUSH ONE (01:37)
[2021-07-20] MEDS ORDERED: SODIUM CHLORIDE 0.9% 500 ML INFUS.BAG IV ONE (01:38)
[2021-07-20] MEDS ORDERED: morphine SULFATE 4 MG/ML VIAL ONE (01:41)
[2021-07-20] MEDS ORDERED: ACETAMINOPHEN 1000 MG/100 ML VIAL IVPB ONE (03:10)
[2021-07-20] MEDS ORDERED: ACETAMINOPHEN INJECTION 100 ML IVPB ONE ×2 (03:13→13:56)
[2021-07-20] MEDS ORDERED: ONDANSETRON 4 MG/2 ML VIAL IVPUSH PRN (03:42)
[2021-07-20] MEDS: DEXTROSE 5%-0.45% SALINE 1,000 ML IV SCH (05:22)
[2021-07-20 06:54] LABS: BASO % 0.1 % (0-2.0); HEMATOCRIT 41.1 % (35.4-49); HEMOGLOBIN 14.2 GM/dL (11.7-16.9); LYMPH % 19.1 % (8-40); MCH 31.4 pg (25.7-33.7); MCHC 34.5 g/dl (32.0-35.9); MEAN PLT VOLUME 8.8 fl (7.5-11.1); MONO % 8.8 % (3.8-10.2); PLATELET COUNT 201 10^3/uL (134-434); RBC 4.51 M/mm3 (4.00-5.60); RDW 14.7 % (11.9-15.9); WHITE BLOOD COUNT 7.8 K/mm3 (4.0-10.0)
[2021-07-20 07:22] LABS: BLOOD UREA NITROGEN 20.4 mg/dL (7-18)
[2021-07-20 07:24] LABS: CALCIUM 8.9 mg/dL (8.5-10.1)
[2021-07-20] MEDS ORDERED: MIDAZOLAM HCL 2 MG/2 ML SINGLE DOSE VIAL ONE (12:31)
[2021-07-20] MEDS ORDERED: fentaNYL CITRATE 250 MCG/5 ML VIAL ONE (13:56)
[2021-07-20] MEDS ORDERED: ACETAMINOPHEN 325 MG TABLET (FP) PO PRN (21:37)
[2021-07-21] MEDS: DEXTROSE 5%-0.45% SALINE 1,000 ML IV SCH (03:45)
[2021-07-21 13:31] VITALS: BP 133/71; PULSE 71; TEMP 98.9
== END 2021-07-21 14:43 | disposition home or self-care (01) | DRG 395 ==
LOC: JER 20:20 → JERBED 07-20 02:59 → J7W 07-20 17:32
PROVIDERS: ADMIT Internal Medicine; ATTEND Family Medicine
PROC: 0DB68ZX Excision of Stomach, Via Natural or Artificial Opening Endoscopic, Diagnostic (ICD-10-PCS; 2021-07-20)
PROC: 0DC58ZZ Extirpation of Matter from Esophagus, Via Natural or Artificial Opening Endoscopic (ICD-10-PCS; 2021-07-20)
PROC: 0DB58ZX Excision of Esophagus, Via Natural or Artificial Opening Endoscopic, Diagnostic (ICD-10-PCS; principal; 2021-07-20 12:30)
DX: T18.128A Food in esophagus causing other injury, initial encounter (principal); M54.9 Dorsalgia, unspecified; G89.29 Other chronic pain; K44.9 Diaphragmatic hernia without obstruction or gangrene; F11.10 Opioid abuse, uncomplicated; K21.00 Gastro-esophageal reflux disease with esophagitis, without bleeding
CPT/HCPCS: 36415; 71250-TC; 80048; 80053; 85025; 85610; 88305-TC; 93005; 93010; 99285-25; C9803; J0131; U0003; U0005

== ENCOUNTER 2022-01-23 19:43 | Emergency (ER) | payer OTHER, BC ==
[2022-01-23 20:08] VITALS: BP 117/83; PULSE 64; TEMP 98.9; BMI 37.7
== END 2022-01-23 20:36 | disposition home or self-care (01) ==
LOC: FER 19:43
DX: S90.229A Contusion of unspecified lesser toe(s) with damage to nail, initial encounter (principal); W29.8XXA Contact with other powered hand tools and household machinery, initial encounter
CPT/HCPCS: 73660-TC-FY; 99283-25

== ENCOUNTER 2023-04-23 23:16 | Emergency (ER) | payer OTHER ==
[2023-04-23 23:33] VITALS: BP 107/68; PULSE 58; RESP 18; TEMP 98.6; BMI 37.8
== END 2023-04-24 00:44 | disposition home or self-care (01) ==
LOC: FER 23:16
DX: S39.012A Strain of muscle, fascia and tendon of lower back, initial encounter (principal); S43.402A Unspecified sprain of left shoulder joint, initial encounter; S20.212A Contusion of left front wall of thorax, initial encounter; W01.198A Fall on same level from slipping, tripping and stumbling with subsequent striking against other object, initial encounter; Y99.0 Civilian activity done for income or pay
CPT/HCPCS: 71101-TC-LT-FY; 72100-TC-FY; 73030-TC-LT-FY; 99284-25